=== PATIENT | female | born 2000 | race African-American/Black ===

== ENCOUNTER 2023-06-26 16:42 | Emergency (ER) | payer SELFPAY ==
[~2023-06-26] VITALS: Ht 162.6 cm; Wt 55.0 kg
[2023-06-26 16:52] VITALS: BP 130/66; PULSE 76; RESP 18; TEMP 98.7; O2SAT 100
== END 2023-06-26 19:04 | disposition left against medical advice (07) ==
LOC: ER 16:42
DX: Z53.21 Procedure and treatment not carried out due to patient leaving prior to being seen by health care provider (principal)
CPT/HCPCS: 99281